=== PATIENT | female | born 1990 | race Asian ===

== ENCOUNTER → 2023-02-05 | Outpatient (CLI) | payer OTHER ==
[2023-02-05 12:45] LABS: SERUM HCG (QUALITATIVE) NEGATIVE (NEGATIVE)
[2023-02-05 12:58] LABS: CALCIUM 8.4 mg/dL (8.4-11.0); CREATININE 0.62 mg/dL (0.55-1.30); POTASSIUM 3.6 mmol/L (3.5-5.1); THYROID STIMULATING HORMONE 2.14 uIu/mL (0.36-3.74)
[2023-02-06 08:07] LABS: ESTRADIOL 78.3 pg/mL (.); FOLLICLE STIMULATION HORMONE 3.2 mIU/mL (.); PROGESTERONE 4.2 ng/mL (.); PROLACTIN 6.7 ng/mL (4.8-23.3)
== END | disposition home or self-care (01) ==
LOC: SLB 11:08
PROVIDERS: ATTEND Specialist
DX: N91.2 Amenorrhea, unspecified (principal)
CPT/HCPCS: 36415; 80048; 82670; 83001; 83037; 84144; 84146; 84443; 84703